=== PATIENT | female | born 1940 | race Caucasian/White ===

== ENCOUNTER 2018-01-25 20:22 | Observation (INO) | payer MEDICARE, BC ==
[2018-01-25] MEDS ORDERED: SODIUM CHLORIDE 0.9% FLUSH 10 ML SOL IV PRN (20:38)
[2018-01-25] MEDS ORDERED: ASPIRIN 81 MG CHEWABLE CTB PO STA (20:38)
[2018-01-25] MEDS ORDERED: METOPROLOL TARTRATE 5 MG/5 ML SOL IV PRN (20:38)
[2018-01-25 20:49] LABS: BASOPHILS % (AUTO) 1 % (0-3); EOSINOPHILS % (AUTO) 3 % (0-9); HEMATOCRIT 45 % (35-47); HEMOGLOBIN 14.4 gm/dl (12.0-15.5); LYMPHOCYTES % (AUTO) 48.6 % (10-50); MEAN CORPUSCULAR HEMOGLOBIN 31.1 pg (27.0-32.0); MEAN CORPUSCULAR HGB CONC 32.3 gm/dl (32.0-36.0); MEAN CORPUSCULAR VOLUME 96 fL (81-99); MONOCYTES % (AUTO) 8.5 % (0-12); NEUTROPHILS % (AUTO) 38.5 % (37-80)
[2018-01-25 20:56] LABS: INR 0.95 (0.86-1.12)
[2018-01-25 21:01] LABS: BLOOD UREA NITROGEN 20 mg/dl (7-18); CALCIUM 8.6 mg/dl (8.5-10.1); CARBON DIOXIDE 28.1 mEq/L (21-32); CHLORIDE 103 mMol/L (98-107); CREATINE KINASE 76 U/L (26-192); CREATININE 0.93 mg/dl (0.60-1.00); GLUCOSE 168 mg/dl (74-106); POTASSIUM 3.7 mMol/L (3.5-5.1); SODIUM 140 mMol/L (136-145); TROP I < 0.017 ng/ml (0.000-0.056)
[2018-01-25 21:12] VITALS: O2SAT 95
[2018-01-25] MEDS ORDERED: ASPIRIN 81 MG CHEWABLE CTB ONE (21:36)
[2018-01-26 00:19] VITALS: RESP 18
[2018-01-26 07:49] VITALS: BP 142/82; PULSE 61; TEMP 98.2
[2018-01-26] MEDS ORDERED: PRAVASTATIN SODIUM 20 MG TAB PO SCH (09:00)
[2018-01-26] MEDS ORDERED: ASPIRIN 81 MG CHEWABLE CTB PO SCH (09:00)
== END 2018-01-26 11:35 | disposition home or self-care (01) | DRG 313 ==
LOC: ED 20:22 → ACUTE CARE 21:49
PROVIDERS: ADMIT Family Medicine; ATTEND Family Medicine
DX: R07.9 Chest pain, unspecified (principal); R11.2 Nausea with vomiting, unspecified; E78.5 Hyperlipidemia, unspecified
CPT/HCPCS: 36415; 71045; 80048; 82550; 83880; 84484; 85025; 85610; 85730; 93005; 93012; 99217; 99220; 99284; A9270-GY